=== PATIENT | male | born 1980 | race Caucasian/White ===

== ENCOUNTER → 2016-05-20 | Outpatient (CLI) | payer SELFPAY, OTHER ==
--- NOTE | 2016-05-20 12:47 | MRI ---
EXAM DESCRIPTION: MRI of the cervical spine CLINICAL HISTORY: CERVICAL RADICULOPATHY COMPARISON: None. TECHNIQUE: Multiplanar MRI of the cervical spine was performed without contrast. GENERAL Cervical vertebral body alignment is unremarkable.Vertebral body heights are maintained. The craniocervical and atlantoaxial junctions are unremarkable. No aggressive osseous lesion. C2-3 Mild bilateral neural foraminal narrowing. The spinal canal is adequate. C3-4 Mild bilateral neural foraminal narrowing. The spinal canal is adequate. C4-5 Moderate bilateral neural foraminal narrowing. The spinal canal is adequate. C5-6 Mild bilateral neural foraminal narrowing. Mild 2 mm broad-based posterior disc protrusion. No spinal canal narrowing or cord contact. The AP diameter of spinal canal is adequate at 11 mm. C6-7 No significant findings. C7-T1 No significant findings. CORD AND INTRASPINAL No cervical cord or intraspinal lesions. IMPRESSION: Today's exam demonstrates multilevel facet and uncovertebral joint hypertrophy resulting in neural foraminal narrowing from C2-C3 through C5-C6. These findings could account for patient's cervical radiculopathy. There is no spinal canal narrowing at any level or cord contact. Electronically signed by: Andres Bhatti MD 05/20/2016 12:46
== END | disposition home or self-care (01) ==
LOC: MRI 10:27
PROVIDERS: ATTEND Family Medicine
DX: M54.12 Radiculopathy, cervical region (principal)

== ENCOUNTER → 2019-01-24 | Outpatient (CLI) | payer OTHER, SELFPAY ==
--- NOTE | 2019-01-24 17:06 | CT ---
EXAM DESCRIPTION: CT ABDOMEN AND PELVIS WITH CONTRAST CLINICAL HISTORY: UNSPEC ABDOMINAL PAIN COMPARISON: None Available. TECHNIQUE: CT of the abdomen and pelvis are performed during IV bolus administration of routine adult dose of nonionic iodinated IV contrast. No oral contrast. FINDINGS: In the lower chest, the lung bases are clear. Heart size is normal. CT abdomen Cyst in the upper pole the right kidney measures 3.6 cm. Cyst in the lower pole the left kidney measures 1.6 cm. Otherwise the liver, spleen, pancreas, gallbladder, adrenal glands, stomach and kidneys are normal in appearance. No inflammation around the pancreas. No renal stones or hydronephrosis. No small bowel dilatation to suggest obstruction. No free air or free fluid in the upper abdomen. CT pelvis Appendix appears normal. No inflammation around the cecum or terminal ileum. Abnormal proximal to mid sigmoid colon with thickened wall and pericholecystic inflammatory changes in the fat consistent with acute diverticulitis. No extraluminal gas or measurable fluid collection to suggest abscess or focal perforation. No free air in the lower abdominal or pelvic peritoneal space. Thickening of the adjacent fascial planes is seen. Differential considerations would include focal colitis or inflammatory neoplasm. Follow-up is recommended to ensure return to normal after therapy. Bladder and distal ureters are negative for stones. Normal enhancement of pelvic vessels. No inguinal or lower pelvic adenopathy. Prostate is normal in size a few coarse internal calcifications. Normal seminal vesicles. Delayed images show normal contrast accumulation in the urinary collecting systems. Positive contrast in the proximal left ureter and throughout the right ureteral length. Normal contrast accumulation in the bladder. Bladder appears slightly thick-walled. No filling defect in the bladder. Bone window images are negative for fracture or lytic lesion. Coronal and sagittal reformatted images confirm the findings. IMPRESSION: Inflammatory wall thickening of the sigmoid colon most consistent with acute diverticulitis. See above. No CT evidence of perforation or complicating abscess. This exam was performed according to our departmental dose-optimization program, which includes automated exposure control, adjustment of the mA and/or kV according to patient size and/or use of iterative reconstruction technique. Total DLP equals 2779.06 mGycm. Electronically signed by: Finn Rutledge MD 01/24/2019 5:04 PM CDT
== END ==
LOC: CT 15:06
PROVIDERS: ATTEND Nurse Practitioner
DX: K63.9 Disease of intestine, unspecified (principal)

== ENCOUNTER 2019-02-23 16:57 | Emergency (ER) | payer OTHER ==
[2019-02-23] MEDS: SODIUM CHLORIDE 0.9% 1000ML 1,000 ML IVS ONE (17:24)
[2019-02-23] MEDS: ONDANSETRON INJ 4 MG/2 ML VIAL IV ONE (17:31)
[2019-02-23] MEDS: HYDROmorphone HCL INJ 2 MG/ML VIAL IV ONE ×2 (17:31→20:45)
--- NOTE | 2019-02-23 18:58 | CT ---
EXAM: Abdomen/Pelvis w/Contrast CLINICAL INDICATION: Abdominal pain. COMPARISON: 01/24/2019 TECHNIQUE: The CT scan was done using contiguous axial 5 mm postcontrast sections through the abdomen and pelvis including IV contrast. This exam was performed according to our departmental dose-optimization program, which includes automated exposure control, adjustment of the mA and/or kV according to patient size and/or use of iterative reconstruction technique. FINDINGS: The visualized lung bases contain mild subsegmental atelectasis but are otherwise clear. The liver, gallbladder, adrenal glands, spleen, pancreas, and kidneys have a normal CT appearance except for a simple cyst in the right kidney measuring 3.4 cm. The aorta is normal in caliber. The appendix is normal. There is diverticulosis of the sigmoid colon with thickening and inflammatory change involving a segment of sigmoid colon in the anterior lower left hemipelvis consistent with acute diverticulitis. There is no abscess or free air. There are no dilated loops of small bowel. IMPRESSION: Findings consistent with acute diverticulitis. Electronically signed by: Narciso Moody MD 02/23/2019 6:57 PM [employer]UMENT [employer]
--- NOTE | 2019-02-23 20:34 | ED.PDOC ---
History of Present Illness - General Chief Complaint: Abdominal Pain Stated Complaint: abdominal pain Time Seen by Provider: 02/23/19 18:14 Information Source: patient, RN notes reviewed, Vital Signs reviewed, family - Exam Limitations: no limitations - History of Present Illness Initial Comments: patient is a 38-year-old whit who presents with plaints of lower abdominal pain that started and has worsened as the day has progressed. Patient denies any fever or chills. Denies any dysuria, diarrhea. Patient states that he has not had a bowel movement for 2-3 days. And this is unusual.patient also complains of nausea Patient denies any shortnes or chest pain. Abdominal Pain Onset Location: RLQ, LLQ, suprapubic Pain Radiation: no radiation Quality: moderate Timing/Duration: 7-24 hours Improving Factors: rest Worsening Factors: immobilization Associated Symptoms: nausea/vomiting - nausea only Review of Systems - Review of Systems Constitutional: States: no symptoms reported EENTM: States: no symptoms reported Respiratory: States: no symptoms reported Cardiology: States: no symptoms reported Gastrointestinal/Abdominal: States: see HPI, abdominal pain, constipation, nausea Genitourinary: States: no symptoms reported, see HPI Musculoskeletal: States: no symptoms reported Skin: States: no symptoms reported Neurological: States: no symptoms reported Endocrine: States: no symptoms reported Hematologic/Lymphatic: States: no symptoms reported All other Systems: Reviewed and Negative Past Medical History (General) - Patient Medical History Hx Stroke: No Hx Asthma: No Hx Cardiac Disorders: No Hx Congestive Heart Failure: No Hx Diabetes: No Hx Gastroesophageal Reflux: No Surgical History: other - Vaccination History Hx Influenza Vaccination: Yes - 2018 Family Medical History - Family History Father Family History: Unknown Physical Exam - Physical Exam General Appearance: Alert, Anxious, Obvious distress, Well Developed, Well Groomed, Well Hydrated, Well Nourished Eyes, Ears, Nose, Throat Exam: PERRL/EOMI, normal ENT inspection, TMs normal, pharynx normal Neck: non-tender, full range of motion, supple, normal inspection Respiratory: chest non-tender, lungs clear, normal breath sounds, no respiratory distress, no accessory muscle use Cardiovascular/Chest: normal peripheral pulses, regular rate, rhythm, no edema, no gallop, no JVD, no murmur Gastrointestinal/Abdominal: normal bowel sounds, soft, tenderness - over the lower abdominal wall. Back Exam: normal inspection, no CVA tenderness, no vertebral tenderness Extremity: normal range of motion, non-tender, normal inspection, no pedal edema Neurologic: skewer up II-XII nml as tested, no motor/sensory deficits, alert, normal mood/affect, oriented x 3 Skin Exam: normal color, warm/dry Lymphatic: no adenopathy Special Observations: Tolerates PO Progress - Progress Progress: differential diagnosis: Appendicitis, diverticulitis, obstruction, peritoneal abscess among others. 02/23/19 20:36 patient is feeling better after IV pain medication. We will start antibiotics here in the department. I have had a long discussion with the patient and his regarding treatment, follow-up with his PCP and the gastroenterology doctor.they voice understanding and are. Armond De Luna M.D. #[id number] - Results/Orders Results/Orders: 02/23/19 18:15 Hold Metformin x 48Hrs [id number] Laboratory Results - last 24 hr 02/23/19 02/23/19 17:24 17:24 WBC 11.5 H RBC 4.49 L Hgb 13.8 L Hct 40.8 L MCV 91.0 MCH 30.7 MCHC 33.7 RDW 13.5 Plt Count 130 MPV 9.9 Absolute Neuts (auto) 10.50 H Absolute Lymphs (auto) 0.40 L Absolute Monos (auto) 0.50 Absolute Eos (auto) 0.00 Absolute Basos (auto) 0.10 Neutrophils % 91.2 H Lymphocytes % 3.6 L Monocytes % 4.5 Eosinophils % 0.2 L Basophils % 0.5 Sodium 135 Potassium 3.5 L Chloride 101 Carbon Dioxide 23 Anion Gap 14.5 BUN 23 H Creatinine 1.43 H BUN/Creatinine Ratio 16.1 Random Glucose 175 H Serum Osmolality 278.0 Calcium 9.2 Total Bilirubin 1.2 H AST 15 ALT 17 Alkaline Phosphatase 54 Serum Total Protein 7.9 Albumin 4.5 Globulin 3.4 Albumin/Globulin Ratio 1.3 EXAM: Abdomen/Pelvis w/Contrast CLINICAL INDICATION: Abdominal pain. COMPARISON: 01/24/2019 TECHNIQUE: The CT scan was done using contiguous axial 5 mm postcontrast sections through the abdomen and pelvis including IV contrast. This exam was performed according to our departmental dose-optimization program, which includes automated exposure control, adjustment of the mA and/or kV according to patient size and/or use of iterative reconstruction technique. FINDINGS: The visualized lung bases contain mild subsegmental atelectasis but are otherwise clear. The liver, gallbladder, adrenal glands, spleen, pancreas, and kidneys have a normal CT appearance except for a simple cyst in the right kidney measuring 3.4 cm. The aorta is normal in caliber. The appendix is normal. There is diverticulosis of the sigmoid colon with thickening and inflammatory change involving a segment of sigmoid colon in the anterior lower left hemipelvis consistent with acute diverticulitis. There is no abscess or free air. There are no dilated loops of small bowel. IMPRESSION: Findings consistent with acute diverticulitis. Electronically signed by: Narciso Moody MD 02/23/2019 6:57 PM Departure - Departure Clinical Impression: Diverticulitis large intestine w/o perforation or abscess w/bleeding Time of Disposition: 20:41 Disposition: Discharge to Home or Self Care Condition: Good Departure Forms: ED Discharge - Pt. Copy, Patient Portal Self Enrollment Instructions: DI for Abdominal Pain-Adult, Diverticulitis (DC) Diet: full liquid diet Referrals: Fernando Clarke III, MD [Primary Care Provider] - 1-2 Weeks Prescriptions: Acetamin W/Cod #3 Tab [Tylenol w/CODEINE #3] 1 ea PO Q6H #20 tab Amoxicillin & Pot Clavulanate [Augmentin Tab] 875 mg PO BID #20 tab metroNIDAZOLE [Flagyl] 500 mg PO Q8H #21 tab Home Medications: Ambulatory Orders Acetamin W/Cod #3 Tab [Tylenol w/CODEINE #3] 1 ea PO Q6H #20 tab 02/23/19 Amoxicillin & Pot Clavulanate [Augmentin Tab] 875 mg PO BID #20 tab 02/23/19 metroNIDAZOLE [Flagyl] 500 mg PO Q8H #21 tab 02/23/19
[2019-02-23] MEDS: AMOXICILLIN & POT CLAVULANATE 875 MG TAB PO ONE (20:44)
[2019-02-23] MEDS: metroNIDAZOLE 500 MG TAB PO ONE (20:45)
[2019-02-23] MEDS: HYDROCOD/APAP 5/325 (ER DISP) #3 TAB PO ONE (20:47)
[2019-02-23 20:55] VITALS: BP 125/70; TEMP 98.6; O2SAT 99
== END 2019-02-23 20:55 | disposition home or self-care (01) ==
LOC: ER 16:57
DX: K57.33 Diverticulitis of large intestine without perforation or abscess with bleeding (principal)
CPT/HCPCS: 36415; 74177; 80053; 85025; J1170; J2405; J7030